=== PATIENT | female | born 1985 | race Two or more races ===

== ENCOUNTER 2023-11-16 07:59 | Inpatient (IN) ==
[2023-11-16] MEDS ORDERED: LIDOCAINE 1% LOCAL 20 ML VIAL INFIL PRN (08:11)
[2023-11-16] MEDS ORDERED: OXYTOCIN 30 UNITS/NSS 30 UNITS/500 ML BAG IV PRN (08:11)
[2023-11-16] MEDS: LACTATED RINGER'S 1,000 ML IV PRN (08:30)
--- NOTE | 2023-11-16 09:24 | History & Physical Report ---
Date of Service November 16, 2023 Assessment & Plan (1) Encounter for induction of labor: (2) Post term , 41 weeks: (3) Elderly primigravida: Plan admit, iv, labs. pitocin induction. arom done. fhts categ 1. epidural when desires. Admission and Anticipated Discharge Date Admission Date: November 16, 2023 History of Present Illness Chief Complaint: planned induction Primary Care Provider: [facility] 38yo at 41+wks eglaurel presents to LD with cc of planned postdates induction. Denies ctx, no rom or vb. +FM. PNC c/b 1. AMA PNL rh pos, ri, gbs neg OBH: g1 GYNH: nl paps. no stds Allergies Allergy/AdvReac Type Severity Reaction Status Date / Time No Known Allergies Allergy Verified 11/15/23 15:06 Home Medications Medication Instructions Recorded Confirmed Type doxylamine 10 mg-pyridoxine (vit 1 tab PO DAILY #30 tabs 04/02/23 11/16/23 Rx B6) 10 mg tablet,delayed release (Diclegis) Breast Pump #1 ea 09/16/23 11/15/23 Rx breast pump #1 ea 09/16/23 11/15/23 Rx vitamins no.159-iron 1 tab PO DAILY 11/16/23 11/16/23 History fumarate 28 mg-folic acid 800 mcg tablet ( Vitamin) Patient History Medical History (Updated 11/16/23 @ 09:23 by Elizabeth Goodman MD, FACOG) COVID Breast lump History of chicken pox Surgical History No history of previous surgery Family History (Updated 03/26/23 @ 15:05 by Alyson Yuen) Aunt Breast cancer Denies family history of Ovarian cancer Colorectal cancer Social History (Updated 03/26/23 @ 15:06 by Alyson Yuen) Smoking Status: Never smoker Do You Dip or Chew Tobacco: No; Hx Alcohol Use: No Hx Substance Use: No Preferred Language: Greenlandic Communication Ability: Effective Infantry Assault[employer] Required: No Beliefs That Will Affect Care: Cultural Cultural Beliefs: Possibly delayed circumcision marital status: marital status details: [email or web address] Natalee [phone] Current Living Situation: Spouse Current Living Situation Comment: lives with spouse, no pets current occupational status: student current occupation: [employer] student Feels Safe at Home: Yes Safety Concerns: Feels Safe At This Time Assistive Devices: None Review of Systems as per Subjective / HPI Physical Exam Constitutional: WD/WN, vitals as above Respiratory: normal respiratory effort, lungs clear to auscultation Cardiovascular: Rate/Rhythm: regular rate and regular rhythm Gastrointestinal (Abdomen): soft gravid nt efw 7-8# Musculoskeletal: no edema nontender calves Neurologic: grossly normal Psychiatric: A+Ox3, euthymic affect Genitourinary: Manual OB Exam: + cervical dilation 3 cm, + cervical effacement (75%), + station -2 and + amniotic fluid (arom) clear OB Exam Monitor Tracing: + external FHT monitor used, + external uterine monitor used, + category I and + normal FHT variability Results & Data Vital Signs (Past 12 Hours) Vital Signs Temp Pulse Resp BP 11/16/23 08:26 75 116/71 11/16/23 08:19 98.1 F 20 Coding Level of Care Code None Diagnoses Encounter for induction of labor Z34.90 Post term , 41 weeks O48.0; Z3A.41 Elderly primigravida O09.519
[2023-11-16] MEDS: OXYTOCIN 30 UNITS/NSS 30 UNITS/500 ML BAG IV PRN (09:51)
[2023-11-16 10:01] LABS: Hematocrit (blood only) 36.1 % (37.0-47.0); Hemoglobin 12.1 g/dl (12.0-16.0); Mean Corpuscular Hemoglobin 30.3 pg (25.0-34.0); Mean Corpuscular Hgb Conc 33.5 g/dL (32.0-36.0); Mean Corpuscular Volume 90.5 fL (80.0-100.0); Mean Platelet Volume 13.8 fL (9.4-12.4); Platelet Count 111 K/uL (130-400); RDW Coefficient of Variation 13.7 % (11.5-14.5); RDW Standard Deviation 45.7 fL (36.4-46.3); Red Blood Count 3.99 M/uL (4.20-5.40); White Blood Count 8.73 K/ul (4.8-10.8)
--- NOTE | 2023-11-16 12:38 | Anesthesiology Consultation ---
Date of Service November 16, 2023 Assessment & Plan Chart Review Chart Review: Acceptable Risk for Surgery and Patient NOT seen in Pre Admission Testing Consults Requested none ASA ASA2 Proposed Anesthesia Anesthesia Type: Labor Epidural and CSE History Height/Weight Height: 5 ft 6.14 in Weight: 78.018 kg Allergies Allergy/AdvReac Type Severity Reaction Status Date / Time No Known Allergies Allergy Verified 11/15/23 15:06 Medications Home Medications Medication Instructions Recorded Confirmed Last Taken doxylamine 10 mg-pyridoxine (vit 1 tab PO DAILY #30 tabs 04/02/23 11/16/23 11/15/23 B6) 10 mg tablet,delayed release (Diclegis) Breast Pump #1 ea 09/16/23 11/15/23 Unknown breast pump #1 ea 09/16/23 11/15/23 Unknown vitamins no.159-iron 1 tab PO DAILY 11/16/23 11/16/23 11/15/23 fumarate 28 mg-folic acid 800 mcg tablet ( Vitamin) Active Medications Generic Name Dose Route Start Last Admin Trade Name Michaelq PRN Reason Stop Dose Admin Oxytocin 30 units in 500 mls @ 6 mls/hr 11/16/23 08:11 11/16/23 11:00 Pitocin 30 Units/Nss IV 11/18/23 08:10 0.36 units/hr .Q24H PRN 6 mls/hr Labor Induction/Augmentation Titration Protocol 0.36 UNITS/HR Lactated Ringer's 1,000 mls @ 125 mls/hr 11/16/23 08:11 11/16/23 08:30 Lr IV 11/18/23 08:10 125 mls/hr .Q8H PRN Administration L&D Protocol Protocol Past Medical History Medical History COVID Breast lump History of chicken pox anemia thrombocytopenia Exercise / Class Metabolic Activity II 4-5 Yardwork/Stairs/Walk up hill Past Family History Family History Aunt Breast cancer Denies family history of Ovarian cancer Colorectal cancer Past Surgical History Surgical History No history of previous surgery Past Anesthesia History No Hx of Anesthesia Complications and No Family Hx of Anesthesia Complications History of PONV No Hx of PONV and No Hx of Motion Sickness Social History Smoking Status: Never smoker Do You Dip or Chew Tobacco: No Hx Alcohol Use: No Hx Substance Use: No Physical Exam Vital Signs Last Vital Signs Temp 37.0 C 11/16/23 09:58 Pulse 67 11/16/23 11:35 Resp 18 11/16/23 11:30 BP 134/74 11/16/23 11:35 Testing Laboratory Results 11/16/23 09:02
[2023-11-16] MEDS: fentANYL 2 MCG/ML BUPIVacaine 0.125%-NSS 100ML BAG ONE (12:49)
[2023-11-16] MEDS: BUPIVACAINE 0.25% PF 30 ML VIAL ONE (12:53)
[2023-11-16] MEDS: fentaNYL citrate PF 100 MCG/2 ML VIAL ONE (12:53)
[2023-11-16] MEDS: LIDOCAINE 2%/EPINEPHRINE 1:200,000 20 ML PF ONE (13:05)
[2023-11-16] MEDS ORDERED: ONDANSETRON INJ 2 MG/ML 2 ML VIAL IV PRN ×3 (13:10→20:27)
[2023-11-16] MEDS ORDERED: LIDOCAINE 2% MPF LOCAL 5 ML VIAL EPI PRN (13:10)
[2023-11-16] MEDS ORDERED: NALOXONE HCL 1 MG in SODIUM CHLORIDE 0.9% 1,000 ML IV PRN ×2 (13:10→19:53)
[2023-11-16] MEDS ORDERED: fentaNYL citrate PF 100 MCG/2 ML VIAL EPI PRN (13:10)
[2023-11-16] MEDS ORDERED: BUPIVACAINE 0.25% PF 30 ML VIAL EPI PRN (13:10)
[2023-11-16] MEDS ORDERED: NALOXONE HCL 0.4 MG/1 ML VIAL/CARP IV PRN ×2 (13:10→19:53)
[2023-11-16] MEDS ORDERED: diphenhydrAMINE 50 MG/ML VIAL IV PRN ×3 (13:10→20:27)
[2023-11-16] MEDS ORDERED: SODIUM CHLORIDE 0.9% PF INJ 10 ML VIAL EPI PRN (13:10)
[2023-11-16] MEDS ORDERED: ROPIVACAINE 0.5% PF 5 MG/ML 20 ML VIAL EPI PRN (13:10)
[2023-11-16] MEDS ORDERED: NALBUPHINE HCL INJ 10 MG/ML AMP IV PRN ×2 (13:10→19:53)
[2023-11-16] MEDS ORDERED: PROMETHAZINE 6.25 MG/50.25 ML BAG IV PRN ×2 (13:10→19:53)
[2023-11-16] MEDS ORDERED: fentANYL 2 MCG/ML BUPIVacaine 0.125%-NSS 100ML BAG EPI PRN (13:10)
[2023-11-16] MEDS ORDERED: ePHEDrine sulfate 50 MG/ML AMP IV PRN ×2 (13:10→19:53)
[2023-11-16] MEDS: SODIUM CHLORIDE 0.9% PF INJ 10 ML VIAL ONE (13:13)
--- NOTE | 2023-11-16 14:28 | Labor Progress Brief Note ---
Date of Service November 16, 2023 Subjective comfortable with epidural Assessment & Plan (1) Post term , 41 weeks: (2) Encounter for induction of labor: (3) Elderly primigravida: Plan will see if labor pattern continues to be regular and strong off pitocin and add back prn. fhts categ 1. good cx change. Admission and Anticipated Discharge Date Admission Date: November 16, 2023 Physical Exam Constitutional: WD/WN, vitals as above Genitourinary: Manual OB Exam: + cervical dilation 5 cm, + cervical effacement 100% and + station 0 OB Exam Monitor Tracing: + external FHT monitor used, + external uterine monitor used (q2), + category I and + normal FHT variability Results & Data Vital Signs (Past 12 Hours) Vital Signs Temp Pulse Resp BP Pulse Ox 11/16/23 14:24 63 99 11/16/23 14:20 57 L 106/62 11/16/23 14:19 56 L 100 11/16/23 14:16 57 L 108/60 11/16/23 14:14 58 L 100 11/16/23 14:12 56 L 111/64 11/16/23 14:09 61 100 11/16/23 14:06 57 L 107/64 11/16/23 14:04 63 100 11/16/23 14:00 56 L 102/57 L 11/16/23 13:59 58 L 100 11/16/23 13:55 59 L 102/55 L 11/16/23 13:54 58 L 100 11/16/23 13:50 60 100/55 L 11/16/23 13:49 58 L 100 11/16/23 13:46 56 L 97/52 L 11/16/23 13:44 55 L 100 11/16/23 13:40 54 L 98/53 L 11/16/23 13:39 55 L 100 11/16/23 13:35 54 L 98/55 L 11/16/23 13:34 55 L 100 11/16/23 13:30 64 20 94/52 L 11/16/23 13:29 64 97 11/16/23 13:28 62 95/53 L 11/16/23 13:26 60 103/56 L 11/16/23 13:24 62 97 11/16/23 13:22 59 L 106/55 L 11/16/23 13:20 20 11/16/23 13:20 20 11/16/23 13:19 60 96 11/16/23 13:15 20 11/16/23 13:15 20 11/16/23 13:14 65 100/57 L 97 11/16/23 13:13 68 101/58 L 11/16/23 13:11 69 100/55 L 11/16/23 13:10 18 11/16/23 13:10 18 11/16/23 13:09 65 97 11/16/23 13:08 72 101/55 L 11/16/23 13:07 61 99/56 L 11/16/23 13:05 67 104/61 11/16/23 13:04 74 98 11/16/23 13:03 65 103/55 L 11/16/23 13:00 65 123/60 11/16/23 12:59 68 99 11/16/23 12:58 68 129/60 11/16/23 12:57 71 134/75 11/16/23 12:54 80 99 11/16/23 12:49 76 99 11/16/23 12:44 70 99 11/16/23 12:39 69 127/67 99 11/16/23 12:31 98.4 F 11/16/23 11:35 67 134/74 11/16/23 11:30 11/16/23 11:30 18 11/16/23 11:00 11/16/23 11:00 11/16/23 10:30 20 11/16/23 10:30 20 11/16/23 10:01 75 112/67 11/16/23 10:00 11/16/23 10:00 11/16/23 09:58 98.6 F 11/16/23 09:30 18 11/16/23 09:30 18 11/16/23 09:00 20 11/16/23 09:00 20 11/16/23 08:26 75 116/71 11/16/23 08:19 98.1 F 20 Coding Level of Care Code None Diagnoses Post term , 41 weeks O48.0; Z3A.41 Encounter for induction of labor Z34.90 Elderly primigravida O09.519
--- NOTE | 2023-11-16 16:20 | Labor Progress Brief Note ---
Date of Service November 16, 2023 Subjective comfortable Assessment & Plan (1) Post term , 41 weeks: (2) Encounter for induction of labor: Plan will keep pit off. fhts are improved but still min variability. have discussed w ith couple need to proceed with c/s depending on what fhts do, they express desire for vaginal but explained can only try to achieve if safe. will reeval shortly. Admission and Anticipated Discharge Date Admission Date: November 16, 2023 Physical Exam Constitutional: WD/WN, vitals as above Genitourinary: Manual OB Exam: + cervical dilation 7 cm, + cervical effacement 100% and + station 0 OB Exam Monitor Tracing: + external FHT monitor used, + intra-uterine pressure catheter used, + category III, + normal FHT variability and + late decelerations present pitocin back at 2 for 20min and late decels noted, pit off, O2 applied, has had ivf bolus. fhts now with minimal variability. no late decels. Results & Data Vital Signs (Past 12 Hours) Vital Signs Temp Pulse Resp BP Pulse Ox 11/16/23 16:14 62 99 11/16/23 16:09 67 108/72 99 11/16/23 16:04 65 97 11/16/23 15:59 57 L 96 11/16/23 15:55 59 L 110/67 11/16/23 15:54 60 96 11/16/23 15:49 61 95 11/16/23 15:44 65 95 11/16/23 15:40 61 95/51 L 11/16/23 15:39 61 96 11/16/23 15:34 58 L 96 11/16/23 15:30 20 11/16/23 15:30 20 11/16/23 15:29 59 L 96 11/16/23 15:25 60 95/53 L 11/16/23 15:24 60 96 11/16/23 15:19 58 L 100 11/16/23 15:14 58 L 100 11/16/23 15:10 56 L 98/54 L 11/16/23 15:09 57 L 99 11/16/23 15:04 57 L 100 11/16/23 15:00 20 11/16/23 15:00 20 11/16/23 14:59 56 L 100 11/16/23 14:54 62 94/58 L 100 11/16/23 14:49 57 L 100 11/16/23 14:44 59 L 97 11/16/23 14:40 62 92/55 L 11/16/23 14:39 63 98 11/16/23 14:34 59 L 97 11/16/23 14:30 20 11/16/23 14:30 20 11/16/23 14:29 67 99 11/16/23 14:24 63 99 11/16/23 14:20 57 L 106/62 11/16/23 14:19 56 L 100 11/16/23 14:16 57 L 108/60 11/16/23 14:14 58 L 100 11/16/23 14:12 56 L 111/64 11/16/23 14:09 61 100 11/16/23 14:06 57 L 107/64 11/16/23 14:04 63 100 11/16/23 14:00 56 L 102/57 L 11/16/23 13:59 58 L 100 11/16/23 13:55 59 L 102/55 L 11/16/23 13:54 58 L 100 11/16/23 13:50 60 100/55 L 11/16/23 13:49 58 L 100 11/16/23 13:46 56 L 97/52 L 11/16/23 13:44 55 L 100 11/16/23 13:40 54 L 98/53 L 11/16/23 13:39 55 L 100 11/16/23 13:35 54 L 98/55 L 11/16/23 13:34 55 L 100 11/16/23 13:30 64 20 94/52 L 11/16/23 13:29 64 97 11/16/23 13:28 62 95/53 L 11/16/23 13:26 60 103/56 L 11/16/23 13:24 62 97 11/16/23 13:22 59 L 106/55 L 11/16/23 13:20 11/16/23 13:20 11/16/23 13:19 60 96 11/16/23 13:15 11/16/23 13:15 11/16/23 13:14 65 100/57 L 97 11/16/23 13:13 68 101/58 L 11/16/23 13:11 69 100/55 L 11/16/23 13:10 18 11/16/23 13:10 18 11/16/23 13:09 65 97 11/16/23 13:08 72 101/55 L 11/16/23 13:07 61 99/56 L 11/16/23 13:05 67 104/61 11/16/23 13:04 74 98 11/16/23 13:03 65 103/55 L 11/16/23 13:00 65 123/60 11/16/23 12:59 68 99 11/16/23 12:58 68 129/60 11/16/23 12:57 71 134/75 11/16/23 12:54 80 99 11/16/23 12:49 76 99 11/16/23 12:44 70 99 11/16/23 12:39 69 127/67 99 11/16/23 12:31 98.4 F 11/16/23 11:35 67 134/74 11/16/23 11:30 18 11/16/23 11:30 18 11/16/23 11:00 11/16/23 11:00 20 11/16/23 10:30 20 11/16/23 10:30 20 11/16/23 10:01 75 112/67 11/16/23 10:00 20 11/16/23 10:00 20 11/16/23 09:58 98.6 F 11/16/23 09:30 18 11/16/23 09:30 18 11/16/23 09:00 20 11/16/23 09:00 11/16/23 08:26 75 116/71 11/16/23 08:19 98.1 F 20 Coding Level of Care Code None Diagnoses Post term , 41 weeks O48.0; Z3A.41 Encounter for induction of labor Z34.90
--- NOTE | 2023-11-16 16:40 | Labor Progress Brief Note ---
Date of Service November 16, 2023 Subjective pt comfortable Assessment & Plan (1) Post term , 41 weeks: (2) Encounter for induction of labor: (3) Elderly primigravida: Plan fhts now categ 1. mvu's inadeq but i prefer not to restart pitocin and i do not feel fetus tolerates. will see if her spont labor pattern cont to dilate cx. will recheck in 2hrs or sooner if needed. +scalp stim response and they prefer for now to proceed with trial of labor. Admission and Anticipated Discharge Date Admission Date: November 16, 2023 Physical Exam Constitutional: WD/WN, vitals as above Genitourinary: Manual OB Exam: + cervical dilation 7 cm OB Exam Monitor Tracing: + intra-uterine pressure catheter used, + category I and + normal FHT variability (+scalp stim ) Results & Data Vital Signs (Past 12 Hours) Vital Signs Temp Pulse Resp BP Pulse Ox 11/16/23 16:34 63 99 11/16/23 16:29 64 99 11/16/23 16:24 64 111/69 99 11/16/23 16:19 62 99 11/16/23 16:14 62 99 11/16/23 16:09 67 108/72 99 11/16/23 16:04 65 97 11/16/23 15:59 57 L 96 11/16/23 15:55 59 L 110/67 11/16/23 15:54 60 96 11/16/23 15:49 61 95 11/16/23 15:44 65 95 11/16/23 15:40 61 95/51 L 11/16/23 15:39 61 96 11/16/23 15:34 58 L 96 11/16/23 15:30 20 11/16/23 15:30 20 11/16/23 15:29 59 L 96 11/16/23 15:25 60 95/53 L 11/16/23 15:24 60 96 11/16/23 15:19 58 L 100 11/16/23 15:14 58 L 100 11/16/23 15:10 56 L 98/54 L 11/16/23 15:09 57 L 99 11/16/23 15:04 57 L 100 11/16/23 15:00 20 11/16/23 15:00 20 11/16/23 14:59 56 L 100 11/16/23 14:54 62 94/58 L 100 11/16/23 14:49 57 L 100 11/16/23 14:44 59 L 97 11/16/23 14:40 62 92/55 L 11/16/23 14:39 63 98 11/16/23 14:34 59 L 97 11/16/23 14:30 20 11/16/23 14:30 20 11/16/23 14:29 67 99 11/16/23 14:24 63 99 11/16/23 14:20 57 L 106/62 11/16/23 14:19 56 L 100 11/16/23 14:16 57 L 108/60 11/16/23 14:14 58 L 100 11/16/23 14:12 56 L 111/64 11/16/23 14:09 61 100 11/16/23 14:06 57 L 107/64 11/16/23 14:04 63 100 11/16/23 14:00 56 L 102/57 L 11/16/23 13:59 58 L 100 11/16/23 13:55 59 L 102/55 L 11/16/23 13:54 58 L 100 11/16/23 13:50 60 100/55 L 11/16/23 13:49 58 L 100 11/16/23 13:46 56 L 97/52 L 11/16/23 13:44 55 L 100 11/16/23 13:40 54 L 98/53 L 11/16/23 13:39 55 L 100 11/16/23 13:35 54 L 98/55 L 11/16/23 13:34 55 L 100 11/16/23 13:30 64 20 94/52 L 11/16/23 13:29 64 97 11/16/23 13:28 62 95/53 L 11/16/23 13:26 60 103/56 L 11/16/23 13:24 62 97 11/16/23 13:22 59 L 106/55 L 11/16/23 13:20 11/16/23 13:20 11/16/23 13:19 60 96 11/16/23 13:15 11/16/23 13:15 11/16/23 13:14 65 100/57 L 97 11/16/23 13:13 68 101/58 L 11/16/23 13:11 69 100/55 L 11/16/23 13:10 18 11/16/23 13:10 18 11/16/23 13:09 65 97 11/16/23 13:08 72 101/55 L 11/16/23 13:07 61 99/56 L 11/16/23 13:05 67 104/61 11/16/23 13:04 74 98 11/16/23 13:03 65 103/55 L 11/16/23 13:00 65 123/60 11/16/23 12:59 68 99 11/16/23 12:58 68 129/60 11/16/23 12:57 71 134/75 11/16/23 12:54 80 99 11/16/23 12:49 76 99 11/16/23 12:44 70 99 11/16/23 12:39 69 127/67 99 11/16/23 12:31 98.4 F 11/16/23 11:35 67 134/74 11/16/23 11:30 18 11/16/23 11:30 18 11/16/23 11:00 20 11/16/23 11:00 11/16/23 10:30 20 11/16/23 10:30 20 11/16/23 10:01 75 112/67 11/16/23 10:00 11/16/23 10:00 11/16/23 09:58 98.6 F 11/16/23 09:30 18 11/16/23 09:30 18 11/16/23 09:00 20 11/16/23 09:00 11/16/23 08:26 75 116/71 11/16/23 08:19 98.1 F 20 Coding Level of Care Code None Diagnoses Post term , 41 weeks O48.0; Z3A.41 Encounter for induction of labor Z34.90 Elderly primigravida O09.519
[2023-11-16] MEDS ORDERED: AMPICILLIN SOD 1 GM VIAL IV STA (18:51)
--- NOTE | 2023-11-16 18:51 | Labor Progress Brief Note ---
Date of Service November 16, 2023 Subjective comfortable with epidural Assessment & Plan (1) Encounter for induction of labor: (2) Post term , 41 weeks: Plan pt unchanged with spont labor pattern. now febrile and meconium fluid. i have not felt comfortable restarting pitocin due to prior decels. rec she proceed with c/s at this time. alt to use pitocin again only if fhts remain categ 1. at times variability is minimal and i would not add pitocin. they are deciding how they want to proceed. Admission and Anticipated Discharge Date Admission Date: November 16, 2023 Physical Exam Constitutional: WD/WN, vitals as above now febrile 38.2 Genitourinary: Manual OB Exam: + cervical dilation 7 cm and + amniotic fluid meconium OB Exam Monitor Tracing: + external FHT monitor used, + intra- uterine pressure catheter used, + category I and + normal FHT variability no cervical change Results & Data Vital Signs (Past 12 Hours) Vital Signs Temp Pulse Resp BP Pulse Ox 11/16/23 18:44 84 98 11/16/23 18:40 100.8 F H 78 124/68 11/16/23 18:39 82 99 11/16/23 18:34 80 99 11/16/23 18:30 20 11/16/23 18:30 20 11/16/23 18:29 81 99 11/16/23 18:24 91 H 113/69 99 11/16/23 18:19 87 100 11/16/23 18:15 98.4 F 11/16/23 18:15 100.2 F H 11/16/23 18:14 79 100 11/16/23 18:10 85 111/69 11/16/23 18:09 88 99 11/16/23 18:04 90 99 11/16/23 18:00 20 11/16/23 18:00 100.2 F H 20 11/16/23 17:59 59 L 100 11/16/23 17:55 60 127/69 11/16/23 17:54 62 100 11/16/23 17:49 61 100 11/16/23 17:44 61 100 11/16/23 17:39 100 11/16/23 17:39 63 11/16/23 17:39 62 110/65 11/16/23 17:34 60 100 11/16/23 17:30 16 11/16/23 17:30 16 11/16/23 17:29 62 100 11/16/23 17:24 62 117/70 99 11/16/23 17:19 60 99 11/16/23 17:14 63 99 11/16/23 17:11 60 116/68 11/16/23 17:09 63 99 11/16/23 17:04 60 99 11/16/23 17:00 20 11/16/23 17:00 20 11/16/23 16:59 65 99 11/16/23 16:56 60 117/67 11/16/23 16:54 63 99 11/16/23 16:49 60 99 11/16/23 16:44 66 99 11/16/23 16:39 61 108/66 99 11/16/23 16:34 63 99 11/16/23 16:30 20 11/16/23 16:30 20 11/16/23 16:29 64 99 11/16/23 16:24 64 111/69 99 11/16/23 16:19 62 99 11/16/23 16:14 62 99 11/16/23 16:09 67 108/72 99 11/16/23 16:04 65 97 11/16/23 16:00 98.2 F 11/16/23 16:00 11/16/23 16:00 11/16/23 15:59 57 L 96 11/16/23 15:55 59 L 110/67 11/16/23 15:54 60 96 11/16/23 15:49 61 95 11/16/23 15:44 65 95 11/16/23 15:40 61 95/51 L 11/16/23 15:39 61 96 11/16/23 15:34 58 L 96 11/16/23 15:30 20 11/16/23 15:30 20 11/16/23 15:29 59 L 96 11/16/23 15:25 60 95/53 L 11/16/23 15:24 60 96 11/16/23 15:19 58 L 100 11/16/23 15:14 58 L 100 11/16/23 15:10 56 L 98/54 L 11/16/23 15:09 57 L 99 11/16/23 15:04 57 L 100 11/16/23 15:00 11/16/23 15:00 11/16/23 14:59 56 L 100 11/16/23 14:54 62 94/58 L 100 11/16/23 14:49 57 L 100 11/16/23 14:44 59 L 97 11/16/23 14:40 62 92/55 L 11/16/23 14:39 63 98 11/16/23 14:34 59 L 97 11/16/23 14:30 20 11/16/23 14:30 11/16/23 14:29 67 99 11/16/23 14:24 63 99 11/16/23 14:20 57 L 106/62 11/16/23 14:19 56 L 100 11/16/23 14:16 57 L 108/60 11/16/23 14:14 58 L 100 11/16/23 14:12 56 L 111/64 11/16/23 14:09 61 100 11/16/23 14:06 57 L 107/64 11/16/23 14:04 63 100 11/16/23 14:00 56 L 102/57 L 11/16/23 13:59 58 L 100 11/16/23 13:55 59 L 102/55 L 11/16/23 13:54 58 L 100 11/16/23 13:50 60 100/55 L 11/16/23 13:49 58 L 100 11/16/23 13:46 56 L 97/52 L 11/16/23 13:44 55 L 100 11/16/23 13:40 54 L 98/53 L 11/16/23 13:39 55 L 100 11/16/23 13:35 54 L 98/55 L 11/16/23 13:34 55 L 100 11/16/23 13:30 64 20 94/52 L 11/16/23 13:29 64 97 11/16/23 13:28 62 95/53 L 11/16/23 13:26 60 103/56 L 11/16/23 13:24 62 97 11/16/23 13:22 59 L 106/55 L 11/16/23 13:20 11/16/23 13:20 11/16/23 13:19 60 96 11/16/23 13:15 11/16/23 13:15 11/16/23 13:14 65 100/57 L 97 11/16/23 13:13 68 101/58 L 11/16/23 13:11 69 100/55 L 11/16/23 13:10 18 11/16/23 13:10 18 11/16/23 13:09 65 97 11/16/23 13:08 72 101/55 L 11/16/23 13:07 61 99/56 L 11/16/23 13:05 67 104/61 11/16/23 13:04 74 98 11/16/23 13:03 65 103/55 L 11/16/23 13:00 65 123/60 11/16/23 12:59 68 99 11/16/23 12:58 68 129/60 11/16/23 12:57 71 134/75 11/16/23 12:54 80 99 11/16/23 12:49 76 99 11/16/23 12:44 70 99 11/16/23 12:39 69 127/67 99 11/16/23 12:31 98.4 F 11/16/23 11:35 67 134/74 11/16/23 11:30 18 11/16/23 11:30 18 11/16/23 11:00 20 11/16/23 11:00 11/16/23 10:30 20 11/16/23 10:30 11/16/23 10:01 75 112/67 11/16/23 10:00 11/16/23 10:00 11/16/23 09:58 98.6 F 11/16/23 09:30 18 11/16/23 09:30 18 11/16/23 09:00 11/16/23 09:00 11/16/23 08:26 75 116/71 11/16/23 08:19 98.1 F 20 Coding Level of Care Code None Diagnoses Encounter for induction of labor Z34.90 Post term , 41 weeks O48.0; Z3A.41
--- NOTE | 2023-11-16 19:02 | Labor Progress Brief Note ---
Date of Service November 16, 2023 Subjective comfortable with epidural. Assessment & Plan (1) Post term , 41 weeks: (2) Encounter for induction of labor: Plan currently late decels. now have told pt that i rec c/s now. they agree. consent reviewed and signed. will try to reposition to see if can correct decels. nursery and anesth aware. need to proceed urgently. Admission and Anticipated Discharge Date Admission Date: November 16, 2023 Physical Exam Constitutional: WD/WN, vitals as above Genitourinary: OB Exam Monitor Tracing: + intra-uterine pressure catheter used, + category III and + late decelerations present Results & Data Vital Signs (Past 12 Hours) Vital Signs Temp Pulse Resp BP Pulse Ox 11/16/23 18:54 93 H 123/64 99 11/16/23 18:49 97 H 99 11/16/23 18:44 84 98 11/16/23 18:40 100.8 F H 78 124/68 11/16/23 18:39 82 99 11/16/23 18:34 80 99 11/16/23 18:30 20 11/16/23 18:30 20 11/16/23 18:29 81 99 11/16/23 18:24 91 H 113/69 99 11/16/23 18:19 87 100 11/16/23 18:15 98.4 F 11/16/23 18:15 100.2 F H 11/16/23 18:14 79 100 11/16/23 18:10 85 111/69 11/16/23 18:09 88 99 11/16/23 18:04 90 99 11/16/23 18:00 20 11/16/23 18:00 100.2 F H 20 11/16/23 17:59 59 L 100 11/16/23 17:55 60 127/69 11/16/23 17:54 62 100 11/16/23 17:49 61 100 11/16/23 17:44 61 100 11/16/23 17:39 100 11/16/23 17:39 63 11/16/23 17:39 62 110/65 11/16/23 17:34 60 100 11/16/23 17:30 16 11/16/23 17:30 16 11/16/23 17:29 62 100 11/16/23 17:24 62 117/70 99 11/16/23 17:19 60 99 11/16/23 17:14 63 99 11/16/23 17:11 60 116/68 11/16/23 17:09 63 99 11/16/23 17:04 60 99 11/16/23 17:00 20 11/16/23 17:00 11/16/23 16:59 65 99 11/16/23 16:56 60 117/67 11/16/23 16:54 63 99 11/16/23 16:49 60 99 11/16/23 16:44 66 99 11/16/23 16:39 61 108/66 99 11/16/23 16:34 63 99 11/16/23 16:30 20 11/16/23 16:30 11/16/23 16:29 64 99 11/16/23 16:24 64 111/69 99 11/16/23 16:19 62 99 11/16/23 16:14 62 99 11/16/23 16:09 67 108/72 99 11/16/23 16:04 65 97 11/16/23 16:00 98.2 F 11/16/23 16:00 11/16/23 16:00 11/16/23 15:59 57 L 96 11/16/23 15:55 59 L 110/67 11/16/23 15:54 60 96 11/16/23 15:49 61 95 11/16/23 15:44 65 95 11/16/23 15:40 61 95/51 L 11/16/23 15:39 61 96 11/16/23 15:34 58 L 96 11/16/23 15:30 11/16/23 15:30 11/16/23 15:29 59 L 96 11/16/23 15:25 60 95/53 L 11/16/23 15:24 60 96 11/16/23 15:19 58 L 100 11/16/23 15:14 58 L 100 11/16/23 15:10 56 L 98/54 L 11/16/23 15:09 57 L 99 11/16/23 15:04 57 L 100 11/16/23 15:00 20 11/16/23 15:00 20 11/16/23 14:59 56 L 100 11/16/23 14:54 62 94/58 L 100 11/16/23 14:49 57 L 100 11/16/23 14:44 59 L 97 11/16/23 14:40 62 92/55 L 11/16/23 14:39 63 98 11/16/23 14:34 59 L 97 11/16/23 14:30 20 11/16/23 14:30 20 11/16/23 14:29 67 99 11/16/23 14:24 63 99 11/16/23 14:20 57 L 106/62 11/16/23 14:19 56 L 100 11/16/23 14:16 57 L 108/60 11/16/23 14:14 58 L 100 11/16/23 14:12 56 L 111/64 11/16/23 14:09 61 100 11/16/23 14:06 57 L 107/64 11/16/23 14:04 63 100 11/16/23 14:00 56 L 102/57 L 11/16/23 13:59 58 L 100 11/16/23 13:55 59 L 102/55 L 11/16/23 13:54 58 L 100 11/16/23 13:50 60 100/55 L 11/16/23 13:49 58 L 100 11/16/23 13:46 56 L 97/52 L 11/16/23 13:44 55 L 100 11/16/23 13:40 54 L 98/53 L 11/16/23 13:39 55 L 100 11/16/23 13:35 54 L 98/55 L 11/16/23 13:34 55 L 100 11/16/23 13:30 64 20 94/52 L 11/16/23 13:29 64 97 11/16/23 13:28 62 95/53 L 11/16/23 13:26 60 103/56 L 11/16/23 13:24 62 97 11/16/23 13:22 59 L 106/55 L 11/16/23 13:20 11/16/23 13:20 11/16/23 13:19 60 96 11/16/23 13:15 11/16/23 13:15 11/16/23 13:14 65 100/57 L 97 11/16/23 13:13 68 101/58 L 11/16/23 13:11 69 100/55 L 11/16/23 13:10 18 11/16/23 13:10 18 11/16/23 13:09 65 97 11/16/23 13:08 72 101/55 L 11/16/23 13:07 61 99/56 L 11/16/23 13:05 67 104/61 11/16/23 13:04 74 98 11/16/23 13:03 65 103/55 L 11/16/23 13:00 65 123/60 11/16/23 12:59 68 99 11/16/23 12:58 68 129/60 11/16/23 12:57 71 134/75 11/16/23 12:54 80 99 11/16/23 12:49 76 99 11/16/23 12:44 70 99 11/16/23 12:39 69 127/67 99 11/16/23 12:31 98.4 F 11/16/23 11:35 67 134/74 11/16/23 11:30 18 11/16/23 11:30 18 11/16/23 11:00 11/16/23 11:00 20 11/16/23 10:30 20 11/16/23 10:30 20 11/16/23 10:01 75 112/67 11/16/23 10:00 20 11/16/23 10:00 20 11/16/23 09:58 98.6 F 11/16/23 09:30 18 11/16/23 09:30 18 11/16/23 09:00 20 11/16/23 09:00 11/16/23 08:26 75 116/71 11/16/23 08:19 98.1 F 20 Coding Level of Care Code None Diagnoses Post term , 41 weeks O48.0; Z3A.41 Encounter for induction of labor Z34.90
[2023-11-16] MEDS: TERBUTALINE SULFATE 1 MG/ML VIAL ONE (19:03)
[2023-11-16] MEDS: ACETAMINOPHEN 500 MG TAB ONE (19:08)
[2023-11-16] MEDS: CITRIC ACID/SODIUM CITRATE 15 ML UDC PO SCH (19:10)
[2023-11-16] MEDS: LACTATED RINGER'S 1,000 ML IV SCH (19:19)
[2023-11-16] MEDS: ceFAZolin 2000MG 2,000 MG/15 ML SYR IV SCH (19:21)
[2023-11-16] MEDS ORDERED: LIDOCAINE 2%/EPINEPHRINE 1:200,000 20 ML PF ONE (19:23)
[2023-11-16] MEDS: AZITHROMYCIN 500 MG in DEXTROSE 5% 250 ML IV SCH (19:25)
[2023-11-16] MEDS ORDERED: MoRPHine SULFATE PF 1 MG/ML 10 ML AMP/VIAL ONE (19:39)
[2023-11-16] MEDS ORDERED: KETOROLAC 30 MG/ML VIAL ONE (19:39)
[2023-11-16] MEDS ORDERED: ONDANSETRON INJ 2 MG/ML 2 ML VIAL ONE (19:39)
[2023-11-16] MEDS ORDERED: MEPERIDINE HCL 25 MG/ML CARP/VIAL IV PRN (19:53)
[2023-11-16] MEDS ORDERED: MoRPHine SULFATE PF 1 MG/ML 10 ML AMP/VIAL INT SPINAL ONE (19:53)
[2023-11-16] MEDS ORDERED: MoRPHine SULFATE 2 MG/ML CARP IV PRN (19:53)
[2023-11-16] MEDS ORDERED: NALOXONE HCL 0.08 MG in SYRINGE 1.8 ML IV PRN (19:53)
[2023-11-16] MEDS ORDERED: LACTATED RINGER'S 500 ML IV PRN (19:53)
[2023-11-16] MEDS ORDERED: KETOROLAC 30 MG/ML VIAL IV PRN (19:53)
[2023-11-16] MEDS ORDERED: SODIUM CHLORIDE 0.9% 1,000 ML IV SCH (20:00)
[2023-11-16] MEDS ORDERED: DC INTRASPINAL MORPHINE SCH (20:00)
[2023-11-16] MEDS ORDERED: NO NARCOTICS OR SEDATIVES SCH (20:00)
[2023-11-16] MEDS: BUPIVACAINE 0.25% PF 30 ML VIAL EPI STA (20:02)
[2023-11-16] MEDS: ePHEDrine sulfate 50 MG/ML AMP ONE (20:02)
[2023-11-16] MEDS: CITRIC ACID/SODIUM CITRATE 15 ML UDC ONE (20:02)
[2023-11-16] MEDS: LIDOCAINE 2%/EPINEPHRINE 1:200,000 20 ML PF EPI STA (20:02)
[2023-11-16] MEDS: fentaNYL citrate PF 100 MCG/2 ML VIAL EPI STA (20:02)
[2023-11-16] MEDS: SODIUM CHLORIDE 0.9% PF INJ 10 ML VIAL EPI STA (20:02)
[2023-11-16 20:04] LABS: Base Excess Cord Venous Blood -0.9 mEq/L (-7.7-1.9); Cord Venous Blood HCO3 25 mmol/L (18.4-26.8); Cord Venous Blood PCO2 47 mmHg (30.4-57.2); Cord Venous Blood PO2 < 20 mmHg (14.1-43.3); Cord Venous Blood pH 7.34 (7.20-7.44); O2 Saturation Cord Venous Bld < 60.0 % (<68)
--- NOTE | 2023-11-16 20:06 | Operative Report ---
Post Operative Report Pre & Post Diagnosis Operation Date: 11/16/23 19:10 <No data on this case meets the specified criteria> Preop Dx: 1. 41+wk iup 2. Postdates induction 3. AMA 4. Non reassuring Heart Tones 5. Chorioamnionitis 6. Meconium stained fluid Postop Dx: same I identified the patient and participated in the time-out.: Yes Procedure Operation Date: 11/16/23 19:10 <No data on this case meets the specified criteria> Primary Low Transverse Section Surgeon Elizabeth Goodman MD, FACOG House Nurse Ping Quantitative Blood Loss (QBL) 545 Findings Consistent with Post-Op Diagnosis (viable male infant. Apgars pending. normal uterus tubes and ovaries bilaterally. ) Fluids 1000cc Specimens cord gases, cord blood, placenta Drains pelaez Anesthesia Type Labor Epidural Complications none Disposition Accompanied Patient To Recovery: No Disposition: L&D Indications 38yo with 41 wk induction of labor for postdatism who is recommended to have c/s for non reassuring FHTs, remote from delivery. Description of Procedure The patient was taken to the operating room and identified. After adequate anesthesia was obtained, she was placed in the supine position with a leftward tilt on the operating table and prepped and draped in the usual sterile fashion. A pelaez catheter had already been placed. The knife was used to create a Pfannensteil skin incision that was carried down to the underlying layer of fascia. The fascia was nicked in the midline and this opening was extended laterally using Madrigal scissors. Luis clamps were placed on the superior and inferior aspect of the fascial incision tenting it upward and the underlying rectus muscles were dissected off the overlying fascia both sharply and bluntly using Madrigal scissors. The rectus muscles were bluntly in the midline. The peritoneal cavity was bluntly entered into. This opening was stretched. The bladder blade was placed. The vesicouterine peritoneum was elevated and opened up into and the bladder flap was created digitally and bladder blade was replaced. The knife was used to create a hysterotomy and this opening was stretched. The operators hand was placed through the hysterotomy and the bladder blade was removed. The head was elevated and flexed and with fundal pressure the head was delivered. The shoulders and body were rapidly delivered. The cord was clamped and cut and the 's mouth and nares were bulb suction. The was handed off to the awaiting pediatricians. Cord blood was obtained. The placenta was manually expressed. The uterus was exteriorized and cleared of all clots and debris. Dilute IV Pitocin was begun. The uterine tone was improving. The hysterotomy was closed in a running interlocking fashion using 0 Vicryl followed by a second imbricating layer of 0 Vicryl. The hysterotomy was hemostatic after 2 additional figure of eight sutures of 0 vicryl placed on midpoint and right of hysterotomy. The pelvis was irrigated. The uterus was returned to the abdomen. The gutters were cleared of all clots and debris. The hysterotomy was reinspected and noted to be hemostatic. The fascia was then closed in running fashion using 0 Vicryl. The subcutaneous fat was copiously irrigated and reapproximated using 2-0 chromic. The skin was closed in a subcuticular fashion using 4-0 monocryl. At this point the procedure was terminated. The patient was transferred to the recovery room in stable condition. All sponge, lap and needle counts are correct x2. I attest to the content of the Intraoperative Record and any orders documented therein. Any exceptions are noted below. OB Procedure Charges 63682
--- NOTE | 2023-11-16 20:17 | Anesthesia Procedure Note ---
Date of Service November 16, 2023 Anesthesia Post Epidural Note Vital Signs Vital Signs: Temp Pulse Resp BP Pulse Ox 38.2 C H 104 H 20 96/50 L 100 11/16/23 18:40 11/16/23 20:14 11/16/23 19:25 11/16/23 20:13 11/16/23 20:14 Notes Mental Status: alert / awake / arousable Nausea / Vomiting: adequately controlled Pain: adequately controlled Airway Patency, RR, SpO2: stable & adequate BP & HR: stable & adequate Hydration State: stable & adequate Neuraxial Anesthesia: was administered and sensory block is resolving Anesthetic Complications: no major complications apparent and Pt Satisfied with anesthetic care Epidural: Removed without complications and With tip intact
--- NOTE | 2023-11-16 20:17 | Anesthesiology Progress Note ---
Date of Service November 16, 2023 Anesthesia Post Procedure Vital Signs Vital Signs: Temp Pulse Resp BP Pulse Ox 11/16/23 20:14 104 H 100 11/16/23 20:13 104 H 96/50 L 11/16/23 20:09 101 H 100 11/16/23 19:25 20 11/16/23 19:25 20 11/16/23 19:19 119 H 100 11/16/23 19:14 115 H 100 11/16/23 19:10 126 H 132/81 11/16/23 19:09 122 H 100 11/16/23 19:04 93 H 100 11/16/23 18:59 90 100 11/16/23 18:54 93 H 123/64 99 11/16/23 18:49 97 H 99 11/16/23 18:44 84 98 11/16/23 18:40 38.2 C H 78 124/68 11/16/23 18:39 82 99 11/16/23 18:34 80 99 11/16/23 18:30 20 11/16/23 18:30 20 11/16/23 18:29 81 99 11/16/23 18:24 91 H 113/69 99 11/16/23 18:19 87 100 11/16/23 18:15 36.9 C 11/16/23 18:15 37.9 C H 11/16/23 18:14 79 100 11/16/23 18:10 85 111/69 11/16/23 18:09 88 99 11/16/23 18:04 90 99 11/16/23 18:00 20 11/16/23 18:00 37.9 C H 20 11/16/23 17:59 59 L 100 11/16/23 17:55 60 127/69 11/16/23 17:54 62 100 11/16/23 17:49 61 100 11/16/23 17:44 61 100 11/16/23 17:39 100 11/16/23 17:39 63 11/16/23 17:39 62 110/65 11/16/23 17:34 60 100 11/16/23 17:30 16 11/16/23 17:30 16 11/16/23 17:29 62 100 11/16/23 17:24 62 117/70 99 11/16/23 17:19 60 99 11/16/23 17:14 63 99 11/16/23 17:11 60 116/68 11/16/23 17:09 63 99 11/16/23 17:04 60 99 11/16/23 17:00 11/16/23 17:00 11/16/23 16:59 65 99 11/16/23 16:56 60 117/67 11/16/23 16:54 63 99 11/16/23 16:49 60 99 11/16/23 16:44 66 99 11/16/23 16:39 61 108/66 99 11/16/23 16:34 63 99 11/16/23 16:30 20 11/16/23 16:30 20 11/16/23 16:29 64 99 11/16/23 16:24 64 111/69 99 11/16/23 16:19 62 99 11/16/23 16:14 62 99 11/16/23 16:09 67 108/72 99 11/16/23 16:04 65 97 11/16/23 16:00 36.8 C 11/16/23 16:00 11/16/23 16:00 11/16/23 15:59 57 L 96 11/16/23 15:55 59 L 110/67 11/16/23 15:54 60 96 11/16/23 15:49 61 95 11/16/23 15:44 65 95 11/16/23 15:40 61 95/51 L 11/16/23 15:39 61 96 11/16/23 15:34 58 L 96 11/16/23 15:30 11/16/23 15:30 11/16/23 15:29 59 L 96 11/16/23 15:25 60 95/53 L 11/16/23 15:24 60 96 11/16/23 15:19 58 L 100 11/16/23 15:14 58 L 100 11/16/23 15:10 56 L 98/54 L 11/16/23 15:09 57 L 99 11/16/23 15:04 57 L 100 11/16/23 15:00 11/16/23 15:00 11/16/23 14:59 56 L 100 11/16/23 14:54 62 94/58 L 100 11/16/23 14:49 57 L 100 11/16/23 14:44 59 L 97 11/16/23 14:40 62 92/55 L 11/16/23 14:39 63 98 11/16/23 14:34 59 L 97 11/16/23 14:30 20 11/16/23 14:30 20 11/16/23 14:29 67 99 11/16/23 14:24 63 99 11/16/23 14:20 57 L 106/62 11/16/23 14:19 56 L 100 11/16/23 14:16 57 L 108/60 11/16/23 14:14 58 L 100 11/16/23 14:12 56 L 111/64 11/16/23 14:09 61 100 11/16/23 14:06 57 L 107/64 11/16/23 14:04 63 100 11/16/23 14:00 56 L 102/57 L 11/16/23 13:59 58 L 100 11/16/23 13:55 59 L 102/55 L 11/16/23 13:54 58 L 100 11/16/23 13:50 60 100/55 L 11/16/23 13:49 58 L 100 11/16/23 13:46 56 L 97/52 L 11/16/23 13:44 55 L 100 11/16/23 13:40 54 L 98/53 L 11/16/23 13:39 55 L 100 11/16/23 13:35 54 L 98/55 L 11/16/23 13:34 55 L 100 11/16/23 13:30 64 20 94/52 L 11/16/23 13:29 64 97 11/16/23 13:28 62 95/53 L 11/16/23 13:26 60 103/56 L 11/16/23 13:24 62 97 11/16/23 13:22 59 L 106/55 L 11/16/23 13:20 11/16/23 13:20 11/16/23 13:19 60 96 11/16/23 13:15 11/16/23 13:15 11/16/23 13:14 65 100/57 L 97 11/16/23 13:13 68 101/58 L 11/16/23 13:11 69 100/55 L 11/16/23 13:10 18 11/16/23 13:10 18 11/16/23 13:09 65 97 11/16/23 13:08 72 101/55 L 11/16/23 13:07 61 99/56 L 11/16/23 13:05 67 104/61 11/16/23 13:04 74 98 11/16/23 13:03 65 103/55 L 11/16/23 13:00 65 123/60 11/16/23 12:59 68 99 11/16/23 12:58 68 129/60 11/16/23 12:57 71 134/75 11/16/23 12:54 80 99 11/16/23 12:49 76 99 11/16/23 12:44 70 99 11/16/23 12:39 69 127/67 99 11/16/23 12:31 36.9 C 11/16/23 11:35 67 134/74 11/16/23 11:30 18 11/16/23 11:30 18 11/16/23 11:00 20 11/16/23 11:00 11/16/23 10:30 20 11/16/23 10:30 20 11/16/23 10:01 75 112/67 11/16/23 10:00 11/16/23 10:00 20 11/16/23 09:58 37.0 C 11/16/23 09:30 18 11/16/23 09:30 18 11/16/23 09:00 20 11/16/23 09:00 11/16/23 08:26 75 116/71 11/16/23 08:19 36.7 C 20 Transfer of Care Handoff Completed per policy Notes Mental Status: alert / awake / arousable Nausea / Vomiting: adequately controlled Pain: adequately controlled Airway Patency, RR, SpO2: stable & adequate BP & HR: stable & adequate Hydration State: stable & adequate Neuraxial Anesthesia: was administered and sensory block is resolving Anesthetic Complications: no major complications apparent and Pt Satisfied with anesthetic care
[2023-11-16] MEDS ORDERED: HYDROmorphone INJ 0.5 MG/0.5 ML SYR IV PRN (20:27)
[2023-11-16] MEDS ORDERED: DIPHTHER/TETAN/PERTUS Vaccine (Tdap, Adol/Adult) 0.5mL IM ONE (20:27)
[2023-11-16] MEDS ORDERED: PROMETHAZINE 12.5 MG/50.5 ML BAG IV PRN (20:27)
[2023-11-16] MEDS ORDERED: LACTATED RINGER'S 1,000 ML IV SCH (20:27)
[2023-11-16] MEDS ORDERED: SENNA 8.6 MG TAB PO PRN (20:27)
[2023-11-16] MEDS ORDERED: CALCIUM CARBONATE 500 MG CHEWABLE TAB PO PRN (20:27)
[2023-11-16] MEDS ORDERED: BENZOCAINE 20% SPRY 85 APPLN/85 GM CAN EXT PRN (20:27)
[2023-11-16] MEDS ORDERED: MAGNESIUM HYDROXIDE SUSP 30 ML UDC PO PRN (20:27)
[2023-11-16] MEDS ORDERED: HYDROCORTISONE ACETATE 25 MG SUPP PR PRN (20:27)
[2023-11-16] MEDS ORDERED: oxyCODONE HCL IR 5 MG TAB (IMMEDIATE RELEASE) PO PRN (20:27)
[2023-11-16] MEDS ORDERED: diphenhydrAMINE Capsule 25 MG CAP PO PRN (20:27)
[2023-11-16] MEDS: SIMETHICONE 80 MG CHEW PO SCH (21:58)
[2023-11-16] MEDS: DOCUSATE SODIUM 100 MG CAP PO SCH (21:59)
[2023-11-16] MEDS: HYDROmorphone INJ 0.5 MG/0.5 ML SYR IV PRN (22:16)
[2023-11-16] MEDS: IBUPROFEN 600 MG TAB PO SCH (22:40)
[2023-11-16] MEDS: KETOROLAC 30 MG/ML VIAL IV SCH (22:40)
[2023-11-16] MEDS: ACETAMINOPHEN 325 MG TAB PO SCH (22:41)
[2023-11-16] MEDS: OXYTOCIN 20 UNITS/LR 1,002 ML IV SCH (22:51)
[2023-11-17] MEDS: KETOROLAC 30 MG/ML VIAL IV PRN (02:05)
[2023-11-17] MEDS ORDERED: ACETAMINOPHEN 500 MG TAB PO SCH (06:00)
--- NOTE | 2023-11-17 06:09 | Obstetrical Progress Note ---
Date of Service November 17, 2023 Assessment & Plan (1) Encounter for care and examination after delivery: (2) Post term , 41 weeks: (3) Chorioamnionitis, delivered, current hospitalization: (4) Elderly primigravida: Plan Pt is 38 yo post- day 1 s/p at 41w0d. was complicated by COVID during , cat 2 FHT during induction of labor, and chorioamnionitis. Patient continues with nausea this morning, but willing to try regular diet again. Hbg and vital are stable. WBC mildly elevated. Encourage ambulation, sitting up in chair and breast feeding Ibuprofen 600mg PRN q4h, Tylenol 650mg PRN q6h, IV Dilaudid 30mg q6h for pain control Monitor vitals, incision and Hgb Upon discharge, pt to follow up with Dr. Goodman in 6 weeks. Admission and Anticipated Discharge Date Admission Date: November 16, 2023 Supervising Physician Co-Signing Physician Notes Resident Physician Supervision Note: I was present with Dr. Ann during the history and exam. I discussed the case with the resident and agree with the findings and plan as documented in the note. Any exceptions or clarifications are listed here: stable, doing well. some n/v overnight. slight nausea now. +flatus. no void yet. pain well controlled. . abd soft ff 2 down nt, incision c/d/i. ext nt calves. pod#1 s/p c/s doing well. discussed ambulation, adv diet. await void. hgb pending. routine care. Documented By: Elizabeth Goodman MD, FACOG Subjective Pt is 38 yo post- day 1 s/p at 41w0d. was complicated by COVID during , cat 2 FHT during induction of labor, and chorioamnionitis Ambulation:Minimal in room Voiding:None yet Passing gas: yes BM: no Diet tolerance:regular diet Lochia:bloody, no clots Feeding type: breast Current pain level: 3 /10 improved with IV Dilaudid Resting comfortably this morning in NAD. Pt endorses nausea, has not been able to hold food down since delivery. Willing to try regular diet again today. Denies FATIMA, CP, SOB, diarrhea, LE pain/swelling. Review of Systems Review of Systems: As per HPI Physical Exam Constitutional: WD/WN, vitals as above Respiratory: normal respiratory effort, lungs clear to auscultation Cardiovascular: RRR, no murmur, no edema (Trace edema at ankles) Gastrointestinal (Abdomen): normal bowel sounds, soft, nontender, no hepatosplenomegaly Uterine fundus firm and at level of umbilicus Incision is well approximated, non draining Neurologic: PERRL, EOMI, accommodation nl, no face palsy, no dysarthria Moving all 4 extremities on command Psychiatric: A+Ox3, euthymic affect Results & Data Vital Signs (Past 12 Hours) Vital Signs Temp Pulse Pulse Resp BP BP Pulse Ox 11/17/23 05:05 18 97 11/17/23 03:56 16 96 11/17/23 03:30 36.7 C 63 18 96/60 L 97 11/17/23 03:01 16 97 11/17/23 02:00 16 97 11/17/23 01:00 18 96 11/17/23 00:00 11/17/23 00:00 11/17/23 00:00 18 96 11/16/23 23:53 37.1 C 75 18 93/58 L 95 11/16/23 23:32 90 96/52 L 11/16/23 23:29 80 96 11/16/23 23:24 90 96 11/16/23 23:22 88 110/59 L 11/16/23 23:19 101 H 97 11/16/23 23:14 85 97 11/16/23 23:12 93 H 101/55 L 11/16/23 23:09 83 97 11/16/23 23:04 82 97 11/16/23 23:02 86 97/55 L 11/16/23 22:59 88 97 11/16/23 22:54 87 97 11/16/23 22:52 88 94/50 L 11/16/23 22:49 88 97 11/16/23 22:44 96 H 97 11/16/23 22:42 106 H 95/51 L 11/16/23 22:39 97 H 96 11/16/23 22:34 91 H 97 11/16/23 22:32 102 H 98/53 L 11/16/23 22:30 37.6 C H 11/16/23 22:29 93 H 97 11/16/23 22:26 93 H 95/54 L 11/16/23 22:25 18 11/16/23 22:24 104 H 96 11/16/23 22:23 164 H 173/149 H 11/16/23 22:19 111 H 96 11/16/23 22:14 94 H 95 11/16/23 22:09 94 H 95 11/16/23 22:04 96 H 95 11/16/23 22:02 102 H 106/59 L 11/16/23 21:59 97 H 96 11/16/23 21:55 18 11/16/23 21:55 18 11/16/23 21:54 92 H 96 11/16/23 21:53 81 94 11/16/23 21:52 82 96/51 L 11/16/23 21:49 85 95 11/16/23 21:44 85 96 11/16/23 21:42 86 97/53 L 11/16/23 21:39 91 H 96 11/16/23 21:34 88 95 11/16/23 21:32 93 H 94/55 L 11/16/23 21:29 94 H 96 11/16/23 21:25 18 11/16/23 21:24 86 97 11/16/23 21:22 82 98/51 L 11/16/23 21:19 84 97 11/16/23 21:15 18 11/16/23 21:14 89 97 11/16/23 21:13 104 H 129/57 L 11/16/23 21:09 100 H 98 11/16/23 21:05 20 11/16/23 21:04 99 H 98 11/16/23 21:02 96 H 90/54 L 11/16/23 20:59 104 H 98 11/16/23 20:55 18 11/16/23 20:54 101 H 97 11/16/23 20:52 106 H 105/53 L 11/16/23 20:49 105 H 98 11/16/23 20:45 11/16/23 20:44 100 H 98 11/16/23 20:42 94 H 102/52 L 11/16/23 20:39 96 H 99 11/16/23 20:35 18 11/16/23 20:34 98 H 99 11/16/23 20:32 96 H 88/51 L 11/16/23 20:29 101 H 99 11/16/23 20:25 37.1 C 18 11/16/23 20:24 101 H 99 11/16/23 20:22 141 H 91/42 L 11/16/23 20:19 102 H 99 11/16/23 20:14 104 H 100 11/16/23 20:13 104 H 96/50 L 11/16/23 20:09 101 H 100 11/16/23 19:25 20 11/16/23 19:25 20 11/16/23 19:19 119 H 100 11/16/23 19:14 115 H 100 11/16/23 19:10 126 H 132/81 11/16/23 19:09 122 H 100 11/16/23 19:04 93 H 100 11/16/23 18:59 90 100 11/16/23 18:54 93 H 123/64 99 11/16/23 18:49 97 H 99 11/16/23 18:44 84 98 11/16/23 18:40 38.2 C H 78 124/68 11/16/23 18:39 82 99 11/16/23 18:34 80 99 11/16/23 18:30 20 11/16/23 18:30 20 11/16/23 18:29 81 99 11/16/23 18:24 91 H 113/69 99 11/16/23 18:19 87 100 11/16/23 18:15 36.9 C 11/16/23 18:15 37.9 C H 11/16/23 18:14 79 100 11/16/23 18:10 85 111/69 11/16/23 18:09 88 99 O2 Del Method O2 Del Method 11/17/23 05:05 11/17/23 03:56 11/17/23 03:30 Room Air 11/17/23 03:01 11/17/23 02:00 11/17/23 01:00 11/17/23 00:00 Room Air 11/17/23 00:00 Room Air 11/17/23 00:00 11/16/23 23:53 Room Air 11/16/23 23:32 11/16/23 23:29 11/16/23 23:24 11/16/23 23:22 11/16/23 23:19 11/16/23 23:14 11/16/23 23:12 11/16/23 23:09 11/16/23 23:04 11/16/23 23:02 11/16/23 22:59 11/16/23 22:54 11/16/23 22:52 11/16/23 22:49 11/16/23 22:44 11/16/23 22:42 11/16/23 22:39 11/16/23 22:34 11/16/23 22:32 11/16/23 22:30 11/16/23 22:29 11/16/23 22:26 11/16/23 22:25 11/16/23 22:24 11/16/23 22:23 11/16/23 22:19 11/16/23 22:14 11/16/23 22:09 11/16/23 22:04 11/16/23 22:02 11/16/23 21:59 11/16/23 21:55 11/16/23 21:55 11/16/23 21:54 11/16/23 21:53 11/16/23 21:52 11/16/23 21:49 11/16/23 21:44 11/16/23 21:42 11/16/23 21:39 11/16/23 21:34 11/16/23 21:32 11/16/23 21:29 11/16/23 21:25 11/16/23 21:24 11/16/23 21:22 11/16/23 21:19 11/16/23 21:15 11/16/23 21:14 11/16/23 21:13 11/16/23 21:09 11/16/23 21:05 11/16/23 21:04 11/16/23 21:02 11/16/23 20:59 11/16/23 20:55 11/16/23 20:54 11/16/23 20:52 11/16/23 20:49 11/16/23 20:45 11/16/23 20:44 11/16/23 20:42 11/16/23 20:39 11/16/23 20:35 11/16/23 20:34 11/16/23 20:32 11/16/23 20:29 11/16/23 20:25 11/16/23 20:24 11/16/23 20:22 11/16/23 20:19 11/16/23 20:14 11/16/23 20:13 11/16/23 20:09 11/16/23 19:25 11/16/23 19:25 11/16/23 19:19 11/16/23 19:14 11/16/23 19:10 11/16/23 19:09 11/16/23 19:04 11/16/23 18:59 11/16/23 18:54 11/16/23 18:49 11/16/23 18:44 11/16/23 18:40 11/16/23 18:39 11/16/23 18:34 11/16/23 18:30 11/16/23 18:30 11/16/23 18:29 11/16/23 18:24 11/16/23 18:19 11/16/23 18:15 11/16/23 18:15 11/16/23 18:14 11/16/23 18:10 11/16/23 18:09 Laboratory Results 11/17/23 11/16/23 11/16/23 Range/Units 05:53 19:38 09:02 WBC 13.18 H 8.73 (4.8-10.8) K/ul RBC 3.32 L 3.99 L (4.20-5.40) M/uL Hgb 10.1 L 12.1 (12.0-16.0) g/dl Hct 30.0 L 36.1 L (37.0-47.0) % MCV 90.4 90.5 (80.0-100.0) fL MCH 30.4 30.3 (25.0-34.0) pg MCHC 33.7 33.5 (32.0-36.0) g/dL RDW Std Deviation 45.7 45.7 (36.4-46.3) fL RDW Coeff of Ramon 13.8 13.7 (11.5-14.5) % Plt Count 96 L 111 L (130-400) K/uL MPV 13.5 H 13.8 H (9.4-12.4) fL Immature Gran % (Auto) 0.6 % Neut % (Auto) 85.5 % Lymph % (Auto) 7.3 % [place] % (Auto) 6.2 % Eos % (Auto) 0.1 % Baso % (Auto) 0.3 % Neut # (Auto) 11.27 H (1.40-6.50) K/uL Lymph # (Auto) 0.96 L (1.20-3.40) K/uL [place] # (Auto) 0.82 H (0.11-0.59) K/uL Eos # (Auto) 0.01 (0.00-0.50) K/uL Baso # (Auto) 0.04 (0.00-0.20) K/uL Immature Gran # (Auto) 0.08 (0.01-0.20) K/uL Platelet Estimate Decreased L (Normal) Cord VBG pH 7.34 (7.20-7.44) Cord VBG pCO2 47 (30.4-57.2) mmHg Cord VBG pO2 < 20 (14.1-43.3) mmHg Cord VBG HCO3 25 (18.4-26.8) mmol/L Cord VBG Base Excess -0.9 (-7.7-1.9) mEq/L Cord VBG O2 Sat < 60.0 (<68) % Blood Gas Comments INFANT A Treponema pallidum Ab Pending Blood Type A Positive Antibody Screen NEGATIVE
[2023-11-17 07:14] LABS: Basophils # (auto) 0.04 K/uL (0.00-0.20); Basophils % (auto) 0.3 %; Eosinophils # (auto) 0.01 K/uL (0.00-0.50); Eosinophils % (auto) 0.1 %; Hemoglobin 10.1 g/dl (12.0-16.0); Immature Granulocytes # (auto) 0.08 K/uL (0.01-0.20); Immature Granulocytes % (auto) 0.6 %; Lymphocytes # (auto) 0.96 K/uL (1.20-3.40); Lymphocytes % (auto) 7.3 %; Mean Corpuscular Hemoglobin 30.4 pg (25.0-34.0); Mean Corpuscular Hgb Conc 33.7 g/dL (32.0-36.0); Mean Corpuscular Volume 90.4 fL (80.0-100.0); Mean Platelet Volume 13.5 fL (9.4-12.4); Monocytes # (auto) 0.82 K/uL (0.11-0.59); Monocytes % (auto) 6.2 %; Neutrophils # (auto) 11.27 K/uL (1.40-6.50); Neutrophils % (auto) 85.5 %; Platelet Count 96 K/uL (130-400); Platelet Estimate Decreased (Normal); RDW Coefficient of Variation 13.8 % (11.5-14.5); RDW Standard Deviation 45.7 fL (36.4-46.3); Red Blood Count 3.32 M/uL (4.20-5.40); White Blood Count 13.18 K/ul (4.8-10.8)
[2023-11-17] MEDS: PRENATAL VITAMIN 1 TAB PO SCH (08:09)
[2023-11-17] MEDS: FERROUS SULFATE 325 MG TAB PO SCH (08:10)
[2023-11-17] MEDS: bisacodyL 5 MG TABEC PO SCH (20:07)
[2023-11-18 05:38] VITALS: RESP 16
--- NOTE | 2023-11-18 05:45 | Obstetrical Progress Note ---
Date of Service November 18, 2023 Assessment & Plan (1) Encounter for care and examination after delivery: (2) Post term , 41 weeks: (3) Chorioamnionitis, delivered, current hospitalization: (4) Elderly primigravida: Plan Pt is 38 yo post- day 2 s/p at 41w0d. was complicated by COVID during , cat 2 FHT during induction of labor, and chorioamnionitis. Patient tolerating regular diet without nausea or vomiting. Hbg and vital are stable. Encourage ambulation, sitting up in chair and breast feeding Ibuprofen 600mg PRN q4h, Tylenol 650mg PRN q6h for pain control Monitor vitals, incision and Hgb Plan discharge tomorrow, pt to follow up with Dr. Goodman in 6 weeks. Admission and Anticipated Discharge Date Admission Date: November 16, 2023 Supervising Physician Co-Signing Physician Notes Resident Physician Supervision Note: I interviewed and examined the patient. Discussed with Dr. Ann and agree with findings and plan as documented in the note. Any exceptions or clarifications are listed here: POD#2 doing well. Continue routine postop care. Documented By: Ying Feng, DO Subjective Pt is 38 yo post- day 2 s/p at 41w0d. was complicated by COVID during , cat 2 FHT during induction of labor, and chorioamnionitis Ambulation:Minimal in room Voiding: normal voiding Passing gas: yes BM: no Diet tolerance:regular diet Lochia:bloody, no clots Feeding type: breast Current pain level: 3 /10 improved with IV Dilaudid Resting comfortably this morning in NAD. Tolerating regular diet Denies FATIMA, CP, SOB, diarrhea, LE pain/swelling. Review of Systems Review of Systems: As per HPI Physical Exam Constitutional: WD/WN, vitals as above Respiratory: normal respiratory effort, lungs clear to auscultation Cardiovascular: RRR, no murmur, no edema (Trace edema at ankles) Gastrointestinal (Abdomen): normal bowel sounds, soft, nontender, no hepatosplenomegaly Uterine fundus is firm and 1 cm below umbilicus Neurologic: PERRL, EOMI, accommodation nl, no face palsy, no dysarthria Psychiatric: A+Ox3, euthymic affect Results & Data Vital Signs (Past 12 Hours) Vital Signs Temp Pulse Resp BP Pulse Ox O2 Del Method 11/18/23 05:00 36.5 C 69 16 100/66 97 Room Air 11/18/23 00:15 36.7 C 86 18 97/62 L 96 Room Air 11/17/23 20:15 Room Air 11/17/23 20:15 36.4 C L 81 16 97/62 L 98 Room Air Resident Activity Tracking Resident Involvement: Resident Care Provided Care Provided: Adult Hospital Medicine
[2023-11-18 07:06] LABS: Hematocrit (blood only) 29.2 % (37.0-47.0); Hemoglobin 9.7 g/dl (12.0-16.0); Mean Corpuscular Hemoglobin 30.4 pg (25.0-34.0); Mean Corpuscular Hgb Conc 33.2 g/dL (32.0-36.0); Mean Corpuscular Volume 91.5 fL (80.0-100.0); Mean Platelet Volume 12.9 fL (9.4-12.4); Platelet Count 83 K/uL (130-400); RDW Coefficient of Variation 14.1 % (11.5-14.5); RDW Standard Deviation 46.9 fL (36.4-46.3); Red Blood Count 3.19 M/uL (4.20-5.40); White Blood Count 10.25 K/ul (4.8-10.8)
[2023-11-18] MEDS: bisacodyL 10 MG SUPP PR PRN (12:43)
[2023-11-18] MEDS: bisacodyL 10 MG SUPP PR ONE (16:00)
[2023-11-19] MEDS: ACETAMINOPHEN 325 MG TAB PO PRN (04:20)
[2023-11-19] MEDS: IBUPROFEN 600 MG TAB PO PRN (04:21)
--- NOTE | 2023-11-19 05:52 | Obstetrical Progress Note ---
Date of Service November 19, 2023 Assessment & Plan (1) Encounter for care and examination after delivery: (2) Post term , 41 weeks: (3) Chorioamnionitis, delivered, current hospitalization: (4) Elderly primigravida: Plan Pt is 38 yo post-op day 3 s/p at 41w0d. was complicated by COVID during , cat 2 FHT during induction of labor, and chorioamnionitis. Pt ambulating small distances in her room. Hbg and vitals are stable. Increased edema at bilateral LEs, non pitting. C/o chest pain and pressure and SOB with increased activity in her room. EKG ordered to assess cardiac function Encourage ambulation, sitting up in chair and breast feeding Ibuprofen 600mg PRN q4h, Tylenol 650mg PRN q6h for pain control Monitor vitals Upon discharge to home, pt to follow up with Dr. Goodman in 6 weeks. Admission and Anticipated Discharge Date Admission Date: November 16, 2023 Supervising Physician Co-Signing Physician Notes Resident Physician Supervision Note: I interviewed and examined the patient. Discussed with Dr. Ann and agree with findings and plan as documented in the note. Any exceptions or clarifications are listed here: [None] Documented By: Karolyn Hawk MD, FACOG Subjective Pt is 38 yo post-op day 3 s/p at 41w0d. was complicated by COVID during , cat 2 FHT during induction of labor, and chorioamnionitis Ambulation:Minimal in room Voiding: normal voiding Passing gas: yes BM: no Diet tolerance:regular diet Lochia:bloody, no clots Feeding type: breast Current pain level: 3 /10 improved with tylenol and ibuprofen Resting comfortably this morning in NAD. Reporting chest pain and tightness and SOB with ambulation of short distances in her room. Pt is also concerned about increased swelling at her lower legs Denies FATIMA, diarrhea, LE pain. Review of Systems Review of Systems: As per HPI Physical Exam Constitutional: WD/WN, vitals as above Respiratory: normal respiratory effort, lungs clear to auscultation Cardiovascular: RRR, no murmur, no edema (Trace edema at ankles) Gastrointestinal (Abdomen): normal bowel sounds, soft, nontender, no hepatosplenomegaly Uterine fundus is firm at cm below umbilicus Incision is well approximated. Scant clear drainage from left aspect of incision. Neurologic: PERRL, EOMI, accommodation nl, no face palsy, no dysarthria Psychiatric: A+Ox3, euthymic affect Results & Data Vital Signs (Past 12 Hours) Vital Signs Temp Pulse Resp BP Pulse Ox O2 Del Method 11/19/23 00:05 36.4 C L 67 16 112/73 98 Room Air 11/18/23 20:20 37.0 C 63 16 114/70 96 Room Air 11/18/23 19:00 36.8 C 86 16 118/69 98 Room Air Resident Activity Tracking Resident Involvement: Resident Care Provided Care Provided: Adult Hospital Medicine
[2023-11-19 11:48] VITALS: BP 112/73; PULSE 68; TEMP 97.5; O2SAT 98
--- NOTE | 2023-11-19 14:02 | Electrocardiogram Report ---
Test Reason : Blood Pressure : */* mmHG Vent. Rate : 66 BPM Atrial Rate : 66 BPM P-R Int : 158 ms QRS Dur : 74 ms QT Int : 388 ms P-R-T Axes : 19 51 55 degrees QTcB Int : 406 ms Normal sinus rhythm Normal ECG No previous ECGs available Confirmed by Sergey Cohen ([id number]) on 11/19/2023 2:01:58 PM Referred By: Elizabeth Goodman Confirmed By: Sergey Cohen
== END 2023-11-19 19:30 | disposition home or self-care (01) | DRG 788 ==
LOC: 4S1 07:59 → 4E2 11-17 00:09